=== PATIENT | male | born 1940 ===

== ENCOUNTER 2021-10-08 16:17 | Inpatient (IN) ==
[2021-10-08 17:20] LABS: ABS Lymphocytes 0.9 10^3/ul (1.0-4.8); ABS Monocytes 0.6 10^3/ul (0-0.8); ABS Neutrophils 4.8 10^3/ul (1.5-7.7); Eosinophil % 0.5 %; Hematocrit 14 % (42-52); Hemoglobin 4.7 g/dL (14.0-18.0); Lymphocyte % 13.9 %; Mean Corpuscular HGB Conc 33 g/dL (31-36); Mean Corpuscular Hemoglobin 31 pg (27-31); Mean Corpuscular Volume 94 fL (80-94); Mean Platelet Volume 9.2 fL (7.4-10.4); Nucleated Red Blood Cells % 0.4; Platelet Count 282 10^3/uL (150-450); Red Blood Count 1.54 10^6 /uL (4.18-5.48); Red Cell Distribution Width 15 % (10-15); White Blood Count 6.4 10^3/uL (3.5-10.8)
[2021-10-08 17:28] LABS: Activated Partial Thrombo Time 31.9 seconds (26.0-38.0); INR 1.37 (0.86-1.15)
[2021-10-08] MEDS ORDERED: Furosemide 40 mg/4 ml IV VIAL IV SLOW PU ONE ×2 (17:38→23:00)
[2021-10-08] MEDS ORDERED: Al Hydrox/Mg Hydrox/Simet LIQ 30 ML UDC PO PRN (17:40)
[2021-10-08] MEDS ORDERED: Pantoprazole VIAL 40 MG VIAL IV ONE (17:59)
[2021-10-08 18:32] LABS: Troponin I 0.03 ng/mL (<0.03)
[2021-10-08 19:52] LABS: Albumin 3.4 g/dL (3.2-5.2); Anion Gap 11 mmol/L (2-11); CO2 Carbon Dioxide 24 mmol/L (22-32); Calcium 8.4 mg/dL (8.6-10.3); Chloride 94 mmol/L (101-111); Potassium 4.2 mmol/L (3.5-5.0); Sodium 129 mmol/L (135-145)
[2021-10-08 19:58] LABS: ALT 126 U/L (7-52); AST 210 U/L (13-39); Albumin/Globulin Ratio 1.1 (1-3); Alkaline Phosphatase 48 U/L (35-149); Blood Urea Nitrogen 99 mg/dL (6-24); Glucose 156 mg/dL (70-100); Total Protein 6.4 g/dL (6.4-8.9)
[2021-10-09] MEDS ORDERED: Dextrose 50% Syringe 50 ml 25 GM/50 ML SYRINGE IV PUSH PRN (02:25)
[2021-10-09] MEDS: Pantoprazole VIAL 40 MG VIAL IV SCH ×2 (05:12→20:11)
[2021-10-09 06:48] LABS: ABS Lymphocytes 0.9 10^3/ul (1.0-4.8); ABS Monocytes 0.8 10^3/ul (0-0.8); ABS Neutrophils 4.8 10^3/ul (1.5-7.7); Eosinophil % 0.4 %; Hematocrit 17 % (42-52); Hemoglobin 5.7 g/dL (14.0-18.0); Lymphocyte % 14.3 %; Mean Corpuscular HGB Conc 33 g/dL (31-36); Mean Corpuscular Hemoglobin 30 pg (27-31); Mean Corpuscular Volume 92 fL (80-94); Mean Platelet Volume 8.9 fL (7.4-10.4); Nucleated Red Blood Cells % 0.2; Platelet Count 281 10^3/uL (150-450); Red Blood Count 1.89 10^6 /uL (4.18-5.48); Red Cell Distribution Width 16 % (10-15); White Blood Count 6.6 10^3/uL (3.5-10.8)
[2021-10-09 07:03] LABS: Anion Gap 12 mmol/L (2-11); Blood Urea Nitrogen 100 mg/dL (6-24); CO2 Carbon Dioxide 24 mmol/L (22-32); Calcium 8.5 mg/dL (8.6-10.3); Chloride 92 mmol/L (101-111); Glucose 115 mg/dL (70-100); Potassium 3.4 mmol/L (3.5-5.0); Sodium 128 mmol/L (135-145)
[2021-10-09 08:09] LABS: ALT 116 U/L (7-52); AST 196 U/L (13-39); Albumin 3.3 g/dL (3.2-5.2); Albumin/Globulin Ratio 1.1 (1-3); Alkaline Phosphatase 47 U/L (35-149); Creatine Kinase 110 U/L (10-223); Indirect Bilirubin 0.4 mg/dL (0.3-1.0); Total Protein 6.3 g/dL (6.4-8.9)
[2021-10-09 08:26] LABS: % Iron Saturation 7 % (15-55); Iron 36 ug/dL (50-212); LDH 265 U/L (140-271); Total Iron Binding Capacity 510 mcg/dL (250-450); Transferrin 364 mg/dL (203-362); Unsaturated Iron Binding < 495 ug/dL
[2021-10-09 08:50] LABS: TSH Ultra Thyroid Stim Horm 1.13 mcIU/mL (0.34-5.60)
[2021-10-09 08:56] LABS: Ferritin 45.5 ng/mL (24-336)
[2021-10-09] MEDS: buPROPion SR 100 mg TAB.SR PO SCH ×2 (10:40→19:51)
[2021-10-09] MEDS: Furosemide 40 mg/4 ml IV VIAL IV SLOW PU SCH (10:41)
[2021-10-09 13:05] LABS: Urine Appearance Clear; Urine Bilirubin Negative (Negative); Urine Blood Negative (Negative); Urine Color Straw; Urine Glucose Negative (Negative); Urine Ketones Negative (Negative); Urine Nitrite Negative (Negative); Urine Protein Negative (Negative); Urine Specific Gravity 1.008 (1.002-1.030); Urine Urobilinogen Negative (Negative)
[2021-10-09] MEDS ORDERED: Perflutren Lipid Microsphere 3 ML VIAL ONE (15:12)
[2021-10-09] MEDS ORDERED: Midazolam 10 mg/10 ml VIAL 1 mg/ml 10 ml VIAL (10 mg) ONE (16:25)
[2021-10-09] MEDS ORDERED: fentaNYL 100 mcg/2 ml 50 MCG/ML VIAL ONE (16:25)
[2021-10-09 17:41] LABS: Troponin I 0.04 ng/mL (<0.03)
[2021-10-09] MEDS ORDERED: PEG 3000 GI LAVAGE 1 GALLON PO ONE (18:00)
[2021-10-09] MEDS ORDERED: Ondansetron 4 mg VIAL 2 MG/ML 2 ml VIAL IV PRN (23:43)
[2021-10-10] MEDS: Furosemide 40 mg/4 ml IV VIAL IV SLOW PU SCH (00:16)
[2021-10-10] MEDS: Prochlorperazine 5 mg/ml 2 ml VIAL (10 mg) IV PRN ×2 (02:07→12:08)
[2021-10-10] MEDS: oxyCODONE/Acetamin 5/325 mg TAB PO PRN ×3 (03:15→18:13)
[2021-10-10 05:56] LABS: ABS Lymphocytes 0.5 10^3/ul (1.0-4.8); ABS Monocytes 1.2 10^3/ul (0-0.8); ABS Neutrophils 10.7 10^3/ul (1.5-7.7); Eosinophil % 0.3 %; Hematocrit 22 % (42-52); Hemoglobin 7.3 g/dL (14.0-18.0); Lymphocyte % 4.4 %; Mean Corpuscular HGB Conc 33 g/dL (31-36); Mean Corpuscular Hemoglobin 30 pg (27-31); Mean Corpuscular Volume 89 fL (80-94); Mean Platelet Volume 8.3 fL (7.4-10.4); Nucleated Red Blood Cells % 0.2; Platelet Count 275 10^3/uL (150-450); Red Blood Count 2.44 10^6 /uL (4.18-5.48); Red Cell Distribution Width 17 % (10-15); White Blood Count 12.6 10^3/uL (3.5-10.8)
[2021-10-10] MEDS: Pantoprazole VIAL 40 MG VIAL IV SCH ×2 (05:59→18:10)
[2021-10-10 06:09] LABS: INR 1.27 (0.86-1.15)
[2021-10-10 06:14] LABS: Albumin 3.3 g/dL (3.2-5.2); Albumin/Globulin Ratio 1.2 (1-3); Calcium 8.4 mg/dL (8.6-10.3); Globulin 2.8 g/dL (2-4); Magnesium 2.5 mg/dL (1.9-2.7); Potassium 3.3 mmol/L (3.5-5.0); Total Bilirubin 0.9 mg/dL (0.2-1.0); Total Protein 6.1 g/dL (6.4-8.9)
[2021-10-10] MEDS ORDERED: Bumetanide IV 0.25 MG/ML 4 ml VIAL (1 mg) SLOW PUSH ONE ×2 (08:00→09:11)
[2021-10-10] MEDS: buPROPion SR 100 mg TAB.SR PO SCH ×2 (09:39→18:10)
[2021-10-10] MEDS: KCL 20 MEQ/100 ML IVPREMIX 20 MEQ/100 ML BAG IV SCH ×3 (09:41→20:35)
[2021-10-10] MEDS ORDERED: Bumetanide IV 0.25 MG/ML 4 ml VIAL (1 mg) ONE (10:03)
[2021-10-10 12:21] LABS: Calcium 8.5 mg/dL (8.6-10.3); Potassium 3.5 mmol/L (3.5-5.0)
[2021-10-10] MEDS: Heparin 1,000 UNIT/ML 10 ml (10,000 UNITS) CATHLAB/DIALYSIS DIALYSIS ONE ×4 (14:45→17:25)
[2021-10-10] MEDS: Bumetanide IV 0.25 MG/ML 4 ml VIAL (1 mg) SLOW PUSH SCH (18:11)
[2021-10-10] MEDS ORDERED: KCL 20 MEQ/100 ML IVPREMIX 20 MEQ/100 ML BAG IV ONE (21:00)
[2021-10-11] MEDS: Pantoprazole VIAL 40 MG VIAL IV SCH ×2 (06:47→18:04)
[2021-10-11 08:04] LABS: Hematocrit 24 % (42-52); Hemoglobin 7.7 g/dL (14.0-18.0); Mean Corpuscular HGB Conc 32 g/dL (31-36); Mean Corpuscular Hemoglobin 29 pg (27-31); Mean Corpuscular Volume 90 fL (80-94); Mean Platelet Volume 8.3 fL (7.4-10.4); Platelet Count 283 10^3/uL (150-450); Red Blood Count 2.64 10^6 /uL (4.18-5.48); Red Cell Distribution Width 17 % (10-15); White Blood Count 16.8 10^3/uL (3.5-10.8)
[2021-10-11 08:15] LABS: Albumin 3.2 g/dL (3.2-5.2); Albumin/Globulin Ratio 1.1 (1-3); Calcium 8.3 mg/dL (8.6-10.3); Globulin 2.9 g/dL (2-4); Magnesium 2.2 mg/dL (1.9-2.7); Potassium 3.5 mmol/L (3.5-5.0); Total Bilirubin 0.9 mg/dL (0.2-1.0); Total Protein 6.1 g/dL (6.4-8.9)
[2021-10-11] MEDS: buPROPion SR 100 mg TAB.SR PO SCH ×2 (08:34→18:04)
[2021-10-11] MEDS: Bumetanide IV 0.25 MG/ML 4 ml VIAL (1 mg) SLOW PUSH SCH ×3 (08:37→18:04)
[2021-10-11 08:53] LABS: ABS Lymphocytes 0.4 10^3/ul (1.0-4.8); ABS Monocytes 1.6 10^3/ul (0-0.8); ABS Neutrophils 14.8 10^3/ul (1.5-7.7); Eosinophil % 0.1 %; Lymphocyte % 2.4 %
[2021-10-11 09:59] LABS: Hepatitis B Surface Antigen Nonreactive (Nonreactive)
[2021-10-11 10:16] LABS: Hepatitis B Surface Ab Not Immune (Immune)
[2021-10-11] MEDS: Heparin 1,000 UNIT/ML 10 ml (10,000 UNITS) CATHLAB/DIALYSIS DIALYSIS ONE ×5 (13:00→16:13)
[2021-10-11 16:48] LABS: Kappa Free Light Chain 12.3 mg/dL; Lambda Free Light Chain, S 5.56 mg/dL
[2021-10-11] MEDS ORDERED: Bumetanide IV 0.25 MG/ML 4 ml VIAL (1 mg) SLOW PUSH SCH (17:30)
[2021-10-11] MEDS: oxyCODONE/Acetamin 5/325 mg TAB PO PRN (18:07)
[2021-10-12] MEDS: Pantoprazole VIAL 40 MG VIAL IV SCH (05:39)
[2021-10-12 07:11] LABS: ABS Lymphocytes 0.5 10^3/ul (1.0-4.8); ABS Monocytes 1.5 10^3/ul (0-0.8); Eosinophil % 0.3 %; Hematocrit 24 % (42-52); Hemoglobin 7.8 g/dL (14.0-18.0); Lymphocyte % 3.6 %; Mean Corpuscular HGB Conc 33 g/dL (31-36); Mean Corpuscular Hemoglobin 30 pg (27-31); Mean Corpuscular Volume 90 fL (80-94); Mean Platelet Volume 7.7 fL (7.4-10.4); Platelet Count 299 10^3/uL (150-450); Red Blood Count 2.62 10^6 /uL (4.18-5.48); Red Cell Distribution Width 17 % (10-15); White Blood Count 14.1 10^3/uL (3.5-10.8)
[2021-10-12 07:32] LABS: Calcium 8.2 mg/dL (8.6-10.3); Magnesium 1.9 mg/dL (1.9-2.7); Potassium 3.5 mmol/L (3.5-5.0)
[2021-10-12] MEDS: Heparin 1,000 UNIT/ML 10 ml (10,000 UNITS) CATHLAB/DIALYSIS DIALYSIS ONE ×5 (08:30→12:50)
[2021-10-12] MEDS ORDERED: oxyCODONE/Acetamin 5/325 mg TAB PO PRN (08:35)
[2021-10-12] MEDS: Bumetanide IV 0.25 MG/ML 4 ml VIAL (1 mg) SLOW PUSH SCH ×2 (09:28→15:55)
[2021-10-12] MEDS: buPROPion SR 100 mg TAB.SR PO SCH ×2 (09:30→16:03)
[2021-10-12 10:08] LABS: Albumin 2.9 g/dL (3.4-4.7); Albumin/Globulin Ratio 0.95; Gamma Globulin 0.9 g/dL (0.6-1.6); Total Protein(PEP) 5.9 g/dL (6.3 - 7.9)
[2021-10-12] MEDS: Iron Sucrose 200 MG in NS 0.9% 100 ml BAG 100 ML IVPB SCH (15:31)
[2021-10-13 06:26] LABS: ABS Basophils 0.1 10^3/ul (0-0.2); ABS Eosinophils 0.1 10^3/ul (0-0.6); ABS Lymphocytes 0.9 10^3/ul (1.0-4.8); ABS Monocytes 1.3 10^3/ul (0-0.8); ABS Neutrophils 9.1 10^3/ul (1.5-7.7); Eosinophil % 0.9 %; Hematocrit 25 % (42-52); Hemoglobin 7.8 g/dL (14.0-18.0); Lymphocyte % 7.5 %; Mean Corpuscular HGB Conc 32 g/dL (31-36); Mean Corpuscular Hemoglobin 29 pg (27-31); Mean Corpuscular Volume 92 fL (80-94); Mean Platelet Volume 7.9 fL (7.4-10.4); Platelet Count 302 10^3/uL (150-450); Red Blood Count 2.68 10^6 /uL (4.18-5.48); Red Cell Distribution Width 17 % (10-15); White Blood Count 11.5 10^3/uL (3.5-10.8)
[2021-10-13 06:43] LABS: Calcium 8.3 mg/dL (8.6-10.3); Magnesium 1.8 mg/dL (1.9-2.7); Potassium 3.6 mmol/L (3.5-5.0)
[2021-10-13] MEDS: buPROPion SR 100 mg TAB.SR PO SCH ×2 (08:41→17:52)
[2021-10-13] MEDS: Bumetanide IV 0.25 MG/ML 4 ml VIAL (1 mg) SLOW PUSH SCH ×2 (08:41→15:47)
[2021-10-13] MEDS: Iron Sucrose 200 MG in NS 0.9% 100 ml BAG 100 ML IVPB SCH (08:53)
[2021-10-14 08:32] LABS: Calcium 8.5 mg/dL (8.6-10.3); Magnesium 1.7 mg/dL (1.9-2.7); Potassium 3.4 mmol/L (3.5-5.0)
[2021-10-14] MEDS: buPROPion SR 100 mg TAB.SR PO SCH ×2 (09:10→17:42)
[2021-10-14] MEDS: Bumetanide IV 0.25 MG/ML 4 ml VIAL (1 mg) SLOW PUSH SCH ×2 (09:11→15:55)
[2021-10-14] MEDS: Iron Sucrose 200 MG in NS 0.9% 100 ml BAG 100 ML IVPB SCH (09:12)
[2021-10-15] MEDS: Heparin 1,000 UNIT/ML 10 ml (10,000 UNITS) CATHLAB/DIALYSIS DIALYSIS ONE ×6 (08:55→12:55)
[2021-10-15] MEDS: Bumetanide IV 0.25 MG/ML 4 ml VIAL (1 mg) SLOW PUSH SCH ×2 (11:11→13:33)
[2021-10-15] MEDS: Iron Sucrose 200 MG in NS 0.9% 100 ml BAG 100 ML IVPB SCH (13:36)
[2021-10-15] MEDS: buPROPion SR 100 mg TAB.SR PO SCH ×2 (13:42→16:15)
[2021-10-15] MEDS ORDERED: Insulin GLARGINE 100 un/ml 10 ml VIAL SUBCUT SCH (21:00)
[2021-10-16 06:54] LABS: Calcium 8.4 mg/dL (8.6-10.3); Magnesium 1.8 mg/dL (1.9-2.7); Potassium 3.7 mmol/L (3.5-5.0)
[2021-10-16] MEDS: buPROPion SR 100 mg TAB.SR PO SCH (08:25)
[2021-10-16] MEDS: Bumetanide IV 0.25 MG/ML 4 ml VIAL (1 mg) SLOW PUSH SCH ×2 (10:52→15:41)
[2021-10-16] MEDS ORDERED: Clindamycin 600 MG/D5W BAG 600 MG/50 ML BAG IV ONE (12:00)
[2021-10-16] MEDS ORDERED: Lidocaine 1% VIAL 10 MG/ML VIAL ONE (12:40)
[2021-10-16] MEDS ORDERED: IVPREMIX IV ONE (12:40)
[2021-10-16] MEDS ORDERED: HEPARIN IV ONE (12:40)
[2021-10-16] MEDS ORDERED: fentaNYL 100 mcg/2 ml 50 MCG/ML VIAL ONE (12:51)
[2021-10-16] MEDS ORDERED: Heparin - STEMI 5,000 UNITS/ML 1 ml VIAL IV ONE (12:51)
[2021-10-16] MEDS ORDERED: Midazolam 5 mg/5 ml VIAL 1 mg/ml 5 ml VIAL (5 mg) ONE (12:51)
[2021-10-16] MEDS: Iron Sucrose 200 MG in NS 0.9% 100 ml BAG 100 ML IVPB SCH (13:56)
[2021-10-16 15:47] VITALS: BP 119/56
== END 2021-10-16 16:15 | disposition home or self-care (01) | DRG 673 ==
LOC: ED 16:17 → EDHOLD 17:40 → SUATTDRO 17:40 → MEDTELE 19:48
PROVIDERS: ADMIT Internal Medicine; ATTEND Internal Medicine

== ENCOUNTER 2024-07-16 13:00 | Inpatient (IN) ==
[2024-08-05] MEDS ORDERED: Ondansetron 4 mg VIAL 2 MG/ML 2 ml VIAL IV PRN (16:10)
[2024-08-05] MEDS ORDERED: Naloxone 0.4 mg VIAL 0.4 mg/ml 1 ml VIAL IV PRN (16:10)
[2024-08-06 10:09] LABS: Rapid COVID-19 Molecular Undetected (Undetected)
[2024-08-06] MEDS ORDERED: Ondansetron 4 mg VIAL 2 MG/ML 2 ml VIAL ONE (10:14)
[2024-08-06] MEDS ORDERED: Succinylcholine 200 mg VIAL 20 mg/ml 10 ml VIAL (200 mg) ONE (10:14)
[2024-08-06] MEDS ORDERED: Propofol 10 MG/ML 20 ML BTL ONE ×2 (10:14→12:34)
[2024-08-06] MEDS ORDERED: Lidocaine 2% PF 5 ML VIAL ONE (10:14)
[2024-08-06] MEDS ORDERED: Dexamethasone IV 4 MG/ML VIAL 1 ml VIAL ONE (10:14)
[2024-08-06] MEDS ORDERED: Lidocaine 4% TOPICAL 50 ML TOP.SOLN ONE (10:48)
[2024-08-06] MEDS ORDERED: Midazolam 2 mg/2 ml VIAL 1 mg/ml 2 ml VIAL (2 mg) ONE (11:19)
[2024-08-06] MEDS ORDERED: fentaNYL 100 mcg/2 ml 50 MCG/ML VIAL ONE ×3 (11:19→16:28)
[2024-08-06] MEDS ORDERED: Methylene Blue 1% (ANTIDOTE) 10 MG/ML 10 ML SDV VIAL IVPB ONE (11:26)
[2024-08-06] MEDS ORDERED: HYDROmorphone 0.5 MG/0.5 ML SYRINGE ONE ×3 (12:35→14:54)
[2024-08-06] MEDS ORDERED: HYDROmorphone 0.5 MG/0.5 ML SYRINGE IV PRN (14:31)
[2024-08-06] MEDS: Buffered Lidocaine 1% SYRIN 1 ml INTRADERM ONE (15:48)
[2024-08-06] MEDS: Acetaminophen IV 1 GM/100ML 1,000 MG/100 ML BAG IV ONE (15:48)
[2024-08-06] MEDS: Lactated Ringers 1000 ml BAG 1,000 ML IV SCH (15:49)
[2024-08-06] MEDS: fentaNYL 100 mcg/2 ml 50 MCG/ML VIAL IV PRN (16:32)
[2024-08-06 19:07] LABS: Hematocrit 26.1 % (38-53); Hemoglobin 8.4 g/dL (13.2-16.3); Mean Corpuscular Hemoglobin 32.7 pg (27-33); Mean Corpuscular Hgb Conc 32.2 g/dL (31-36); Mean Corpuscular Volume 101.6 fL (80-97); Mean Platelet Volume 7.8 fL (7.5-11.2); Platelet Count 221 10^3/uL (150-450); Red Blood Count 2.57 10^6/uL (4.06-5.63); Red Cell Distribution Width 14.7 % (12-17); White Blood Count 10.8 10^3/uL (3.6-10.2)
[2024-08-06 19:32] LABS: Calcium 8.9 mg/dL (8.6-10.3); Creatinine, Serum 3.98 mg/dL (0.67-1.17); Magnesium 2.1 mg/dL (1.9-2.7); Potassium 5.4 mmol/L (3.5-5.0); eGFR CKD-EPI 14.3 (>60)
[2024-08-06] MEDS: Cholecalciferol (VIT D3) 1,000 unit TAB PO SCH (19:41)
[2024-08-06] MEDS ORDERED: HYDROmorphone 0.5 MG/0.5 ML SYRINGE IV SLOW PU PRN (19:41)
[2024-08-06] MEDS ORDERED: Naloxone 0.4 mg VIAL 0.4 mg/ml 1 ml VIAL IV PUSH PRN (19:42)
[2024-08-06] MEDS: Senna TAB 8.6 mg TAB PO SCH (19:46)
[2024-08-07] MEDS: Polyethylene Glycol 3350 17 GM PACKET PO SCH (08:34)
[2024-08-07] MEDS: Enoxaparin 30 MG/0.3 ML SYR SUBCUT SCH (08:35)
[2024-08-07] MEDS: Aspirin EC 81 mg TAB.EC (enteric coated) PO SCH (08:35)
[2024-08-07 08:48] LABS: ABS Lymphocytes 1.2 10^3/uL (1.0-4.8); ABS Monocytes 1.5 10^3/uL (0.0-1.1); ABS Neutrophils 8.3 10^3/uL (1.5-7.6); Hematocrit 24.1 % (38-53); Hemoglobin 7.4 g/dL (13.2-16.3); Lymphocyte % 10.6 %; Mean Corpuscular Hgb Conc 30.5 g/dL (31-36); Mean Corpuscular Volume 101.8 fL (80-97); Mean Platelet Volume 8.5 fL (7.5-11.2); Platelet Count 212 10^3/uL (150-450); Red Blood Count 2.37 10^6/uL (4.06-5.63); Red Cell Distribution Width 14.4 % (12-17); White Blood Count 11.1 10^3/uL (3.6-10.2)
[2024-08-07] MEDS ORDERED: Enoxaparin 40 MG/0.4 ML SYR SUBCUT SCH (09:00)
[2024-08-07 09:09] LABS: Calcium 8.4 mg/dL (8.6-10.3); Creatinine, Serum 4.22 mg/dL (0.67-1.17); Magnesium 2.1 mg/dL (1.9-2.7); Potassium 5.4 mmol/L (3.5-5.0); eGFR CKD-EPI 13.4 (>60)
[2024-08-07 09:58] VITALS: BP 122/60
[2024-08-07] MEDS: SODIUM ZIRCONIUM CYCLOSILICATE 10 GM PACKET PO ONE (11:32)
== END 2024-08-07 11:50 | disposition home or self-care (01) | DRG 516 ==
LOC: SUATTDRO 08-06 09:12 → AA 08-06 09:12 → EDSTATUS 08-06 11:00 → SSU 08-06 17:44
PROVIDERS: ADMIT Physician Assistant; ATTEND Hospitalist